=== PATIENT | female | born 1990 | race Caucasian/White ===

== ENCOUNTER 2018-11-10 00:46 | Emergency (ER) | payer MEDICAID, OTHER ==
--- NOTE | 2018-11-10 01:03 | EDM.PDOC ---
ED HPI GENERAL MEDICAL PROBLEM - General Chief Complaint: Syncope Stated Complaint: BLACK OUT IN THE SHOWER Time Seen by Provider: 11/10/18 01:01 - History of Present Illness INITIAL COMMENTS - FREE TEXT/NARRATIVE: HISTORY AND PHYSICAL: History of present illness: Patient is a 27-year-old white female presents after a syncopal episode when she got out of shower she denies chest pain palpitations shortness of breath or other concern she denies history of DVT or PE systematically she's denies drugs or alcohol. No headache no head or neck pain or trauma Review of systems: As per history of present illness and below otherwise all systems reviewed and negative. Past medical history: As per history of present illness and as reviewed below otherwise noncontributory. Surgical history: As per history of present illness and as reviewed below otherwise noncontributory. Social history: No reported history of drug or alcohol abuse. Family history: As per history of present illness and as reviewed below otherwise noncontributory. Physical exam: HEENT: Atraumatic, normocephalic, pupils reactive, negative for conjunctival pallor or scleral icterus, mucous membranes moist, throat clear, neck supple, nontender, trachea midline. Lungs: Clear to auscultation, breath sounds equal bilaterally, chest nontender. Heart: S1S2, regular, negative for clicks, rubs, or JVD. Abdomen: Soft, nondistended, nontender. Negative for masses or hepatosplenomegaly. Negative for costovertebral tenderness. Pelvis: Stable nontender. Genitourinary: Deferred. Rectal: Deferred. Extremities: Atraumatic, negative for cords or calf pain. Neurovascular unremarkable. Neuro: Awake, alert, oriented. Cranial nerves II through XII unremarkable. Cerebellum unremarkable. Motor and sensory unremarkable throughout. Exam nonfocal. Diagnostics: CBC CMP hCG EKG chest x-ray Therapeutics: None Impression: #1 probable vasovagal episode Definitive disposition and diagnosis as appropriate pending reevaluation and review of above. - Related Data Allergies Allergy/AdvReac Type Severity Reaction Status Date / Time albuterol Allergy Hives Verified 11/10/18 01:01 Home Meds: Home Meds . [No Known Home Meds] 11/10/18 [History] ED ROS GENERAL - Review of Systems Review Of Systems: ROS reveals no pertinent complaints other than HPI. ED EXAM, GENERAL - Physical Exam Exam: See Below (See dictation) Departure - Departure Time of Disposition: 01:03 Disposition: Home, Self-Care 01 Condition: Good Clinical Impression: Syncope - Discharge Information Referrals: PCP,None [Primary Care Provider] - Additional Instructions: The following information is given to patients seen in the emergency department who are being discharged to home. This information is to outline your options for follow-up care. We provide all patients seen in our emergency department with a follow-up referral. The need for follow-up, as well as the timing and circumstances, are variable depending upon the specifics of your emergency department visit. If you don't have a primary care physician on staff, we will provide you with a referral. We always advise you to contact your personal physician following an emergency department visit to inform them of the circumstance of the visit and for follow-up with them and/or the need for any referrals to a consulting specialist. The emergency department will also refer you to a specialist when appropriate. This referral assures that you have the opportunity for followup care with a specialist. All of these measure are taken in an effort to provide you with optimal care, which includes your followup. Under all circumstances we always encourage you to contact your private physician who remains a resource for coordinating your care. When calling for followup care, please make the office aware that this follow-up is from your recent emergency room visit. If for any reason you are refused follow-up, please contact the [facility] emergency department at and asked to speak to the emergency department charge nurse. Follow-up primary medical doctor as needed as discussed return as needed as discussed push fluids
[2018-11-10 01:49] LABS: CHLORIDE,CL 105 mmol/L (98-107); SODIUM,NA 142 mmol/L (136-145)
--- NOTE | 2018-11-10 02:09 | CR ---
INDICATION: syncopal episode tonight TECHNIQUE: Chest 1 view. COMPARISON: None. FINDINGS: Cardiovascular and mediastinum: Heart size and vasculature are normal in caliber and appearance. Mediastinum is within normal limits. Lungs and pleural space: Lungs are clear. No sign of infiltrate or mass. No sign of pleural effusion. No pneumothorax. Bones and soft tissues: No significant findings. IMPRESSION: Unremarkable chest. Dictated by: Macho Du MD @ 11/10/2018 02:08:10 (Electronically Signed)
== END 2018-11-10 02:30 | disposition home or self-care (01) ==
LOC: MW.ED 00:46
DX: R55 Syncope and collapse (principal); Z88.8 Allergy status to other drugs, medicaments and biological substances
CPT/HCPCS: 36415; 71045; 71045-26; 80053; 84703; 85025; 99284-25

== ENCOUNTER 2019-01-26 19:01 | Emergency (ER) | payer MEDICAID ==
--- NOTE | 2019-01-26 19:28 | EDM.PDOC ---
ED HPI GENERAL MEDICAL PROBLEM - General Chief Complaint: Upper Extremity Injury/Pain Stated Complaint: SHOULDER PAIN Time Seen by Provider: 01/26/19 19:13 - History of Present Illness INITIAL COMMENTS - FREE TEXT/NARRATIVE: HISTORY AND PHYSICAL: History of present illness: The patient is a 28-year-old female who presents with 4 days of left shoulder pain. Initially she had pain in her hand and forearm and she elevated overhead and says that the pain is gradually moved into her shoulder area. She is right- hand dominant and has only taken one dose of ibuprofen in the last 4 days and it did not help. She says she normally sleeps with her arms above her head but she doesn't recall any discrete trauma or injury. She has some minor swelling to her hand but she is uncomfortable elevating it. The pain does not radiate to her forearm or hand but she says that she does have some tension and pain in her posterior neck and has not been moving the upper extremity very much. She has no midline neck or back pain Review of systems: As per history of present illness and below otherwise all systems reviewed and negative. Past medical history: As per history of present illness and as reviewed below otherwise noncontributory. Surgical history: As per history of present illness and as reviewed below otherwise noncontributory. Social history: No reported history of drug or alcohol abuse. Family history: As per history of present illness and as reviewed below otherwise noncontributory. Physical exam: General: Well-developed well-nourished female who is nontoxic and vital signs are noted by me HEENT: Atraumatic, normocephalic, negative for conjunctival pallor or scleral icterus, mucous membranes moist, throat clear, neck supple, nontender, trachea midline. Lungs: Clear to auscultation, breath sounds equal bilaterally, chest nontender. Heart: S1S2, regular rate and rhythm no overt murmurs Abdomen: Soft, nondistended, nontender. NABS Pelvis: Deferred Genitourinary: Deferred. Rectal: Deferred. Extremities: Atraumatic, negative for cords or calf pain. Neurovascular unremarkable. There is full range of motion of all extremities with the exception of left shoulder with the patient resists much movement due to discomfort. She is able to abduct and adduct and to reach forward. There is exquisite tenderness at the trigger point in the anterior joint capsule but no discrete fullness. There is no muscle spasm swelling defects or deformities Neuro: Awake, alert, oriented. Cranial nerves II through XII unremarkable. Cerebellum unremarkable. Motor and sensory unremarkable throughout. Exam nonfocal. Diagnostics: X-ray left shoulder UCG Therapeutics: Toradol IM sling Impression: Left shoulder injury/pain Definitive disposition and diagnosis as appropriate pending reevaluation and review of above. Left Shoulder Pain Score (Numeric/FACES): 6 - Related Data Allergies Allergy/AdvReac Type Severity Reaction Status Date / Time albuterol Allergy Hives Verified 01/26/19 19:14 guaifenesin [From Entex [place]] Allergy Hives Verified 01/26/19 19:14 peanut Allergy Airway Verified 01/26/19 19:15 Tightness phenylephrine [From Entex [place]] Allergy Hives Verified 01/26/19 19:14 phenylpropanolamine Allergy Hives Verified 01/26/19 19:14 [From Entex LA] Home Meds: Home Meds . [No Known Home Meds] 11/10/18 [History] Past Medical History - Past Health History Medical/Surgical History: Denies Medical/Surgical History - Past Surgical History HEENT Surgical History: Reports: Oral Surgery Social & Family History - Family History Family Medical History: Noncontributory - Tobacco Use Smoking Status *Q: Current Every Day Smoker Years of Tobacco use: 11 Packs/Tins Daily: 0.5 - Recreational Drug Use Recreational Drug Use: No Review of Systems - Review of Systems Review Of Systems: ROS reveals no pertinent complaints other than HPI. ED EXAM, GENERAL - Physical Exam Exam: See Below (see dictation) Course - Vital Signs Last Recorded V/S: Last Vital Signs Temp 37.0 C 01/26/19 19:12 Pulse 78 01/26/19 19:12 Resp 18 01/26/19 19:12 BP 137/88 01/26/19 19:12 Pulse Ox 100 01/26/19 19:12 - Orders/Labs/Meds Orders: Active Orders 24 hr Category Date Time Status Ketorolac [Toradol] Med 01/26/19 20:42 Once 60 mg IM ONETIME ONE DME for Discharge [COMM] Stat Oth 01/26/19 20:42 Ordered Medication Orders Ketorolac Tromethamine (Toradol) 60 mg IM ONETIME ONE Stop: 01/26/19 20:43 Labs: Laboratory Tests 01/26/19 Range/Units 19:42 Urine HCG, Qual NEGATIVE (NEGATIVE) Meds: Medications Generic Name Dose Route Start Last Admin Trade Name Federico PRN Reason Stop Dose Admin Ketorolac Tromethamine 60 mg 01/26/19 20:42 Toradol IM 01/26/19 20:43 ONETIME ONE Departure - Departure Time of Disposition: 20:42 Disposition: Home, Self-Care 01 Condition: Good Clinical Impression: Left shoulder pain Qualifiers: Chronicity: acute Qualified Code(s): M25.512 - Pain in left shoulder - Discharge Information Instructions: Shoulder Pain Referrals: PCP,None [Primary Care Provider] - Forms: ED Department Discharge Additional Instructions: The following information is given to patients seen in the emergency department who are being discharged to home. This information is to outline your options for follow-up care. We provide all patients seen in our emergency department with a follow-up referral. The need for follow-up, as well as the timing and circumstances, are variable depending upon the specifics of your emergency department visit. If you don't have a primary care physician on staff, we will provide you with a referral. We always advise you to contact your personal physician following an emergency department visit to inform them of the circumstance of the visit and for follow-up with them and/or the need for any referrals to a consulting specialist. The emergency department will also refer you to a specialist when appropriate. This referral assures that you have the opportunity for followup care with a specialist. All of these measure are taken in an effort to provide you with optimal care, which includes your followup. Under all circumstances we always encourage you to contact your private physician who remains a resource for coordinating your care. When calling for followup care, please make the office aware that this follow-up is from your recent emergency room visit. If for any reason you are refused follow-up, please contact the [facility] emergency department at and ask to speak to the emergency department charge nurse. [facility]--Orthopedic clinic Professional [address] [address] Ice to area as shown to you in the ED and use [id number] nonsteroidal anti -inflammatory drug such as Motrin and ibuprofen for discomfort or fill the prescription you have been given for diclofenac. Do not take both together as they are in the same family of medications.. Please call and schedule a follow- up appointment in the orthopedics clinic resources given to above. Return to ER as needed and as discussed - My Orders Last 24 Hours: My Active Orders 01/26/19 20:42 Ketorolac [Toradol] 60 mg IM ONETIME ONE DME for Discharge [COMM] Stat - Assessment/Plan Last 24 Hours: My Active Orders 01/26/19 20:42 Ketorolac [Toradol] 60 mg IM ONETIME ONE DME for Discharge [COMM] Stat
--- NOTE | 2019-01-26 20:31 | CR ---
INDICATION: pain, no injury TECHNIQUE: Left shoulder 3 views. COMPARISON: None. FINDINGS: Bones: Alignment is normal. No fractures or bone lesions. Joint spaces: Unremarkable. Soft tissues: Unremarkable. IMPRESSION: Unremarkable left shoulder. Dictated by: Macho Du MD @ 01/26/2019 20:29:01 (Electronically Signed)
[2019-01-26] MEDS ORDERED: Ketorolac 60 MG/2 ML SDV IM ONE (20:42)
== END 2019-01-26 21:10 | disposition home or self-care (01) ==
LOC: MW.ED 19:01
DX: M25.512 Pain in left shoulder (principal); F17.210 Nicotine dependence, cigarettes, uncomplicated; Z91.010 Allergy to peanuts; Z88.8 Allergy status to other drugs, medicaments and biological substances
CPT/HCPCS: 73030; 81025; 96372; 99283; J1885